=== PATIENT | male | born 1975 | race Caucasian/White ===

== ENCOUNTER 2020-06-23 10:18 | Outpatient (CLI) | payer OTHER, SELFPAY ==
[2020-06-23 10:45] LABS: Basophils Absolute Auto 0.1 K/mm3 (0.0-0.1); Basophils Percent Auto 0.7 % (0.2-1.2); Eosinophils Absolute Auto 0.2 K/mm3 (0-0.3); Eosinophils Percent Auto 1.8 % (0-4.4); Hematocrit 46.3 % (42.0-52.0); Hemoglobin 15.9 g/dL (14.0-18.0); Immature Granulocyte Absolute 0.03 K/mm3 (0.00-0.031); Immature Granulocyte Percent A 0.4 % (0-0.5); Lymphocytes Absolute Auto 2.55 K/mm3 (0.9-3.2); Lymphocytes Percent Auto 31.4 % (18.3-44.2); Mean Corpuscular HGB Conc 34.3 g/dl (32-36); Mean Corpuscular Hemoglobin 30.4 pg (26-34); Mean Corpuscular Volume 88.5 fl (80-100); Mean Platelet Volume 11.1 fl (7.4-10.4); Monocytes Absolute Auto 0.7 K/mm3 (0.1-0.6); Monocytes Percent Auto 8.1 % (2.6-8.5); Neutrophils Absolute Auto 4.7 K/mm3 (1.3-6.7); Neutrophils Percent Auto 57.6 % (45.5-73.1); Platelet Count Result 248 k/mm3 (150-375); Red Blood Count 5.23 M/mm3 (4.6-6.20); Red Cell Distribution Width 12.1 % (11.5-14.5); White Blood Count 8.1 K/mm3 (4.5-10.0)
[2020-06-23 11:08] LABS: Alanine Aminotransferase 34 U/L (4-50); Albumin Level 4.4 g/dL (3.5-5.1); Alkaline Phosphatase 108 U/L (38-126); Anion Gap 8 mmol/L (8-16); Aspartate Amino Transferase 26 U/L (17-59); Bilirubin,Total 1.1 mg/dL (0.2-1.3); Blood Urea Nitrogen 15 mg/dL (9-20); Calcium 9.3 mg/dL (8.4-10.2); Carbon Dioxide 31 mmol/L (22-30); Chloride 94 mmol/L (98-107); Cholesterol 158 mg/dL (0-200); Estimated Glomerular Filt Rate > 60; Glucose 338 mg/dL (75-110); HDL Direct 32 mg/dL; Potassium 4.7 mmol/L (3.4-5.0); Sodium 133 mmol/L (137-145); Triglycerides 238 mg/dL (<150)
[2020-06-23 11:19] LABS: LDL Cholesterol Direct 91 mg/dL
[2020-06-23 11:30] LABS: Vitamin D 25 Hydroxy 28.6 ng/mL
[2020-06-23 11:49] LABS: Prostate Specific Antigen 0.3 ng/mL (< OR = 4.0)
== END 2020-06-23 10:19 | disposition home or self-care (01) ==
PROVIDERS: PCP Family Medicine; Visit Provider Nurse Practitioner Family
DX: E11.8 Type 2 diabetes mellitus with unspecified complications (principal); I10 Essential (primary) hypertension; Z13.29 Encounter for screening for other suspected endocrine disorder; Z13.220 Encounter for screening for lipoid disorders; Z13.21 Encounter for screening for nutritional disorder; Z12.5 Encounter for screening for malignant neoplasm of prostate
CPT/HCPCS: 36415; 80053; 80061; 82306; 84153; 84443; 85025; G0103

== ENCOUNTER 2024-09-01 01:37 | Day surgery (SDC) | payer OTHER, SELFPAY ==
[2024-08-18 15:34] VITALS: BMI 34.9
--- OUTSIDE RECORDS SUMMARY | 2024-09-01 01:39 | XMS_ITS | CONTINUITY OF CARE DOCUMENT ---
Author Name nirmal kinney Address Unknown Organization [facility] Address [address] [place] [address] Phone [phone] Care Team Providers Care Toll Test Worker Name Role Phone Vignesh Tucker MD Unavailable [phone] ELSA KRISHNA MD Unavailable [phone] ELSA KRISHNA MD Unavailable [phone] PROBLEMS Condition Status Date Provider Notes Diabetes mellitus type II active Inés Harry la TOWER HOIST OPERATOR Anxiety active Inés Hawkins TOWER HOIST OPERATOR Abnormal electrocardiogram active Inés bee TOWER HOIST OPERATOR Diabetes, Type 2 active ? Inés Hawkins TOWER HOIST OPERATOR ENCOUNTERS Date Type Provider Location Encounter Diag nosis - In-person encounter Office Visit Vignesh Tucker MD [facility] Diabetes mellitus ty pe IIAnxietyAbnormal electrocardiogramDiabete s, Type 2 VITAL SIGNS Date Observation Value Provider Body Mass Index (Ratio) 35.67 kg/m2 Bri Hawkins TOWER HOIST OPERATOR blood pressure, diastolic 90 mm[Hg] Kirill Drake blood pressure, systolic 146 mm[Hg] Ludmila Drake blood pressure, resting Yes Vero Drake oxygen saturation, oximetry 98 % Jose Guadalupe Drake pulse rate 92 /min Jose Guadalupe champion respiratory rate E&M 16 /min Jose Guadalupe Drake height E&M 72 [in_i] Jose Guadalupe champion weight E&M 263 [lb_av] Jose Guadalupe champion ALLERGIES Allergy Name Onset Date Reaction Criticality Status SULFA Low Criticality active HISTORY OF MEDICATION USE Medication Status Instructions Dates Provider Indications Com ments GLIPIZIDE 10 MG ORAL TABLET active take 1 tablet daily Jose Guadalupe Drake METFORMIN HCL 500 MG ORAL TABLET active take 1 tablet twice daily Jose Guadalupe Drake SERTRALINE HCL 25 MG ORAL TABLET active take 1 tablet daily Jose Guadalupe Drake METOPROLOL SUCCINATE ER 25 MG ORAL TABLET EXTENDED RELEASE 24 HOUR active take 1 tablet daily Jose Guadalupe Drake LISINOPRIL 40 MG ORAL TABLET active take 1 tablet daily Jose Guadalupe Drake SOCIAL HISTORY Date Observation Value Provider number of grandchildren Vignesh Hawkins TOWER HOIST OPERATOR handedness R Handed Inés Hawkins NP FAMILY HISTORY Family Member Condition Father Family History of [place] br[place] Cancer: Mother Family History Unkno wn INSURANCE PROVIDERS Payer name Policy type / Coverage type [place] [employer] ID BLUE [facility] [id number] ADVANCE DIRECTIVES Name Date DISCUSSED - NO DECISION MADE TREATMENT PLAN Date Name Performer Cardiology:No compla ints C heck Echo, stress test f /u 6 months Inés Hawkins TOWER HOIST OPERATOR Date Name STR - Nuclear Complete Echo HISTORY OF PROCEDURES Procedure Date Procedure Name Provider Procedure Notes S tatus Stress EKG David Marie MD completed Cardiolite, 2 units Vignesh Tucker MD completed SPECT Images David Marie MD complet ed EKG Vignesh Tucker MD complete d SNOMED-CT: [id number] Current Medications Documented Vignesh Tucker MD completed
[2024-09-01 07:10] VITALS: BP 143/83; PULSE 95; RESP 18; TEMP 36.2; O2SAT 100; BMI 34.0
[2024-09-01 07:33] LABS: Glucose Point of Care 214 mg/dl (65-105)
[2024-09-01] MEDS: LACTATED RINGERS 1,000 ML 150 ML IV CONT (07:38)
--- NOTE | 2024-09-01 07:46 | SUR.PREOP ---
Patients blood sugar is 214. Patient stated that this is their normal and they didn't take medication last night or this morning. Notified of patients blood sugar.
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
[2024-09-01 09:00] VITALS: BP 98/60; PULSE 94; RESP 23; O2SAT 98
[2024-09-01 09:10] VITALS: BP 136/67; PULSE 93; RESP 24; O2SAT 100
[2024-09-01 09:20] VITALS: BP 138/90; PULSE 91; RESP 16; O2SAT 97
== END 2024-09-01 09:30 | disposition home or self-care (01) ==
PROVIDERS: PCP Family Medicine; Visit Provider Surgery
PROC: 0DJD8ZZ Inspection of Lower Intestinal Tract, Via Natural or Artificial Opening Endoscopic (ICD-10-PCS; CPT 45378; principal; 2024-09-01 08:30)
DX: Z12.11 Encounter for screening for malignant neoplasm of colon (principal); K57.30 Diverticulosis of large intestine without perforation or abscess without bleeding; Z80.0 Family history of malignant neoplasm of digestive organs; E11.9 Type 2 diabetes mellitus without complications; E66.9 Obesity, unspecified; Z68.34 Body mass index [BMI] 34.0-34.9, adult
CPT/HCPCS: 45378; 82948; J2704; J7120